=== PATIENT | female | born 1975 | race Caucasian/White ===

== ENCOUNTER → 2016-11-27 | Outpatient (REF) | payer OTHER ==
[~2016-11-27] MED LIST: ACET50TA PO; DOCU10ELUD PO; IBUP80TA PO; MOTR200T44 PO; NEXI40CA PO; PRENTAB74 PO; SUCR1TA PO; TYLE167L PO; VITAPRTA PO
== END ==
LOC: EEVIPCON 12:44 → M SFHCLERA 12:44
PROVIDERS: ATTEND Nurse Practitioner Family
DX: R30.0 Dysuria (principal)